=== PATIENT | female | born 1995 | race Caucasian/White ===

== ENCOUNTER 2018-01-07 11:55 | Observation (INO) ==
[2018-01-07 13:23] LABS: Basophils % 0.3 %; Eosinophils # 0.2 K/mcL (0.0-0.6); Eosinophils % 1.8 %; Hematocrit 38.5 % (35.3-44.9); Hemoglobin 13.4 g/dL (11.5-15.4); Immature Granulocytes % 0.7 % (0-4); Lymphocytes # 2.2 K/mcL (0.6-4.6); Lymphocytes % 16.2 %; Mean Corpuscular HGB Conc 34.8 g/dL (31.6-35.5); Mean Corpuscular Hemoglobin 30.6 pg (28.0-33.3); Mean Corpuscular Volume 87.9 fL (83.0-100.0); Mean Platelet Volume 10.2 fL (9.4-12.4); Monocytes # 0.8 K/mcL (0.0-1.3); Monocytes % 6.1 %; Platelet Count 353 K/mcL (140-400); Red Blood Count 4.38 M/mcL (3.82-4.97); Red Cell Distribution Width 13.3 % (11.5-14.5); Segmented Neutrophils % 74.9 %
[2018-01-07 13:24] LABS: Bilirubin,Urine Negative (Negative); Blood,Urine Negative (Negative); Clarity,Urine Cloudy (Clear); Color,Urine Yellow (Yellow); Glucose,Urine (UA) Normal (Normal); Ketones,Urine Negative (Negative); Leukocyte Esterase,Urine Trace (Negative); Nitrite,Urine Negative (Negative); PH,Urine 7.5 pH Units (5.0-8.0); Protein,Urine Negative (Neg-Trace); Urobilinogen,Urine Normal (Normal)
[2018-01-07 13:25] LABS: Bacteria,Urine Moderate per hpf (None-Few); Hyaline Casts,Urine None Seen per lpf (None-Few); Squamous Epithelial Cell,Urine Many per lpf (None-Few)
[2018-01-07 13:27] LABS: RBC,Urine 0-3 per hpf (0-3)
[2018-01-07 13:36] LABS: Alanine Aminotransferase 15 Units/L (7-52); Aspartate Amino Transferase 15 Units/L (13-39); BUN/Creatinine Ratio 11 (6-26); Blood Urea Nitrogen 5 mg/dL (6-20); Lactate Dehydrogenase 162 Units/L (140-271); eGFR For Non-African Americans > 60 (> 60)
[2018-01-07 13:40] LABS: Amphetamine Screen,Urine Negative ng/mL (Cutoff=1000); Barbiturate Screen,Urine Negative ng/mL (Cutoff=200); Benzodiazepines Screen,Urine Negative ng/mL (Cutoff=200); Cannabinoid Screen,Urine Negative ng/mL (Cutoff = 50); Cocaine Screen,Urine Negative ng/mL (Cutoff= 300); Opiate Screen,Urine Negative ng/mL (Cutoff=300); Phencyclidine Screen,Urine Negative ng/mL (Cutoff=25)
[2018-01-07 13:51] LABS: Protein/Creatinine Ratio,Urine 0.25 mg/mg (0.00-0.20)
[2018-01-07] MEDS ORDERED: Acetaminophen 325 MG TABLET PO ONE (14:33)
--- NOTE | 2018-01-07 14:50 | OB/GYN Progress Note ---
Date of Encounter: 01/07/18 Time of Encounter: 14:45 - Assessment and Plan (1) 38 weeks gestation of Current Visit: Yes Status: Acute admitted for observation for PIH evaluation PIH labs WNL serial BPs stable (2) Elevated BP without diagnosis of hypertension Current Visit: Yes Status: Acute PIH labs WNL (3) NST (non-stress test) reactive on surveillance Current Visit: Yes Status: Acute FHR baseline 125 bpm moderate variability +15x15 accels no decels noted. Irregular contractions. Cat. 1 tracing. Subjective - Subjective Principal diagnosis: elevated BP and swelling Interval history: Patient is a 22 y/o at 38w6d presents to labor and delivery with complaints of swelling in her feet and hands. 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 She reports that BP was 162/116. Patient denies any history of elevated BP. After being in triage she started to develop a headache and was given Tylenol. Patient reports good movement. Patient denies feeling contractions, VB or LOF. Patient denies any visual disturbances. Antepartum ROS: movement normal, no loss of fluid, no vaginal bleeding, no contractions Objective - Vital Signs Vital Signs: Intake and Output 01/06/18 01/07/18 01/07/18 23:59 07:59 15:59 Other: Weight 131.3 kg Patient Weight 01/07/18 23:59 Weight 131.3 kg - Exam FHR: auscultation normal, category 1 FHR comments: 125 bpm moderate variability +15x15 accels no decels noted. Cat. 1 tracing. Irregular contractions noted. Auscultation: bilateral: normal Abdomen: Present: normal appearance, soft, gravid Uterus: Present: normal, firm Comments: Bilateral 1+ edema in lower extremities. 2+DTRs no clonus. - Labs Labs: Abnormal lab results WBC 13.4 K/mcL (4.3-11.1) H 01/07/18 12:19 Neutrophils # 10.0 K/mcL (1.6-8.9) H 01/07/18 12:19 BUN 5 mg/dL (6-20) L 01/07/18 12:19 Creatinine 0.44 mg/dL (0.60-1.20) L 01/07/18 12:19 Urine Clarity Cloudy (Clear) A 01/07/18 12:33 Ur Leukocyte Esterase Trace (Negative) H 01/07/18 12:33 Urine Microscopic WBC 5-15 per hpf (0-3) H 01/07/18 12:33 Ur Squamous Epith Cells Many per lpf (None-Few) H 01/07/18 12:33 Urine Bacteria Moderate per hpf (None-Few) H 01/07/18 12:33 Protein/Creatinin Ratio 0.25 mg/mg (0.00-0.20) H 01/07/18 12:33
[2018-01-07] MEDS ORDERED: Acetaminophen/Butalbital/CaffeineTABLET PO PRN (15:33)
== END 2018-01-07 16:20 | disposition home or self-care (01) ==
LOC: 1NENULAB
PROVIDERS: ADMIT Advanced Practice Midwife; ATTEND Advanced Practice Midwife